=== PATIENT | male | born 1980 | race Caucasian/White ===

== ENCOUNTER 2017-12-10 21:05 | Emergency (ER) | payer OTHER, SELFPAY ==
[2017-12-10 21:06] VITALS: BP 127/89; PULSE 84; RESP 25; TEMP 36.6; O2SAT 99; BMI 22.7
--- NOTE | 2017-12-10 21:10 | EKG12_ITS ---
Test Reason : CHEST PAIN Blood Pressure : / mmHG Vent. Rate : 083 BPM Atrial Rate : 083 BPM P-R Int : 162 ms QRS Dur : 086 ms QT Int : 360 ms P-R-T Axes : 063 045 031 degrees QTc Int : 423 ms Normal sinus rhythm Low voltage QRS (LIMB LEADS) Septal MD,age undetermined, cannot be excluded Confirmed by ESTRELLITA MUÑIZ, NIKOS ([id number]), technical editor CELESTE BARBA ([id number] on 12/15/2017 2:17:35 PM Referred By: TONY Confirmed By:NIKOS HARO MD
--- NOTE | 2017-12-10 21:11 | RAD_ITS ---
STUDY: X-RAY CHEST REASON FOR EXAM: Male, 37 years old. Chest pain TECHNIQUE: Single AP portable view of the chest. COMPARISON: January 12, 2015 FINDINGS: There are monitoring devices. The lungs are clear and expanded. There is no demonstrated pleural abnormality. Normal size heart. Normal mediastinum and jocelyn. Normal visualized pulmonary arteries. Normal visualized aortic arch and descending thoracic aorta. Normal visualized thoracic spine. Normal visualized ribs, clavicles, and shoulders. There is no demonstrated abnormality of the visualized soft tissue structures of the upper abdomen. RAD/Chest 1 View (Portable) IMPRESSION: Normal x-ray examination of the chest. Electronically Signed: Wiley Grayson MD at 21:59 EDT , Service support ,
[2017-12-10 21:13] VITALS: PULSE 84; RESP 18; O2SAT 100
[2017-12-10 21:29] LABS: Absolute Lymphocyte Count 2.77 X10^3/ul (0.83-4.51); Absolute Neutrophil Count 8.9 X10^3/uL (2.0-7.7); Basophil# 0.01 X10^3/uL; Basophil% 0.1 % (0-1); Eosinophil# 0.18 X10^3/uL; Eosinophils% 1.4 % (0-5); Hematocrit 41.1 % (40-54); Hemoglobin 14.4 g/dl (13.0-16.5); Lymphocyte # 2.77 X10^3/ul (4.0); Lymphocyte % 21.9 % (19-41); Mean Corpuscular Hgb 29.5 pg (27.0-32.0); Mean Corpuscular Volume 84.2 fL (80-94); Mean Platelet Vol. 8.8 fl (6.2-12.0); Monocyte# 0.74 X10^3/uL; Monocyte% 5.8 % (0-10); Neutrophil # 8.94 X10^3/uL (2.7-7.7); Neutrophil % 70.6 % (47-70); Platelet Count 224 K/mm3 (150-450); RBC Distribution Width CV 12.6 % (11.6-14.6); RBC Distribution Width SD 38.2 fl (35.1-43.9); Red Blood Count 4.88 M/mm3 (4.6-6.2); White Blood Count 12.7 K/mm3 (4.4-11.0)
[2017-12-10 21:30] LABS: POSITIVE COUNT NO; POSITIVE DIFFERENTIAL NO; POSITIVE MORPHOLOGY NO
[2017-12-10 22:02] LABS: Anion Gap 9 (5-15); BUN 18 mg/dL (7-18); BUN/Creat Ratio 20.4 RATIO (10-20); Calcium,Total 9.4 mg/dL (8.5-10.1); Chloride 103 mmol/L (98-107); Creatinine, Serum 0.88 mg/dL (0.70-1.30); EST Glomerular Filtration Rate 102 mL/min (>60); Est Glom Filt Rate - Afr Amer 123 mL/min (>60); Glucose 115 mg/dL (74-106); Potassium 3.6 mmol/L (3.5-5.1); Sodium Level 140 mmol/L (136-145)
[2017-12-10 22:05] VITALS: BP 119/71; PULSE 74; RESP 19; O2SAT 97
--- NOTE | 2017-12-10 22:17 | ED.VISSUMM ---
- ER Visit Summary Date of Service: 12/10/17 Chief Complaint: [] Abdominal pressure radiating into the chest since mid afternoon today History of Present Illness: The patient is a 37 M [] long history of abdominal complaints including cholecystectomy, hiatal hernia surgery in [place] last year, chronic lower abdominal pain he seen GI in the past has had colonoscopy and EGD other tests such as ultrasound of the negative reports to be having had this abdominal pressure that seem to radiate into his chest he came in for evaluation symptoms are improving without any specific ED therapy. He also has a chronic cardiac evaluation including echoes and other tests and was told he had mitral valve prolapse and at no time was told he had angina CAD no history of [place] PE or DVT. In fact he is able to do normal activity exertion etc. without chest pain Pain was the typical abdominal pressure that he has suffered from his eating and drink without difficulty no fever no cough normal bowel bladder habits he seen multiple physicians for this condition Physical Examination: [] On examination he is resting comfortportably the bed his vital signs are normal head neck chest unremarkable the lungs are clear the heart tones are normal abdomen is soft there is no rebound guarding organomegaly I cannot reproduce his abdominal pressure has no sense that this is a pain he declines to call the pain just a pressure his back upper lower extremity unremarkable pulses are symmetric neurologically is awake and alert Test Results: [] Emergency Department Course and Treatment: [] Had a long conversation with the patient about all the above we did do screening labs EKG, the EKG showed a sinus rhythm nothing acute all the labs are unremarkable x-ray unremarkable, explained to him at this time given that he has had the pain since mid afternoon and his troponin of the labs are negative and he has had this pain long-standing exact etiology is unclear I recommend he stay in a bland diet, I referred him back to his primary care physicians 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 It may contain incorrect words, spelling, and punctuation that were not noted in review of the chart prior to signing ED Disposition - Plan for ED Patient: Chief Complaint: Chest Pain Referrals: Gabriel Booker DO [Primary Care Provider] -
--- NOTE | 2017-12-10 22:21 | ED.DCSUM_ITS ---
- ER Visit Summary Date of Service: 12/10/17 Chief Complaint: [] Abdominal pressure radiating into the chest since mid afternoon today History of Present Illness: The patient is a 37 M [] long history of abdominal complaints including cholecystectomy, hiatal hernia surgery in [place] last year , chronic lower abdominal pain he seen GI in the past has had colonoscopy and EGD other tests such as ultrasound of the negative reports to be having had this abdominal pressure that seem to radiate into his chest he came in for evaluation symptoms are improving without any specific ED therapy. He also has a chronic cardiac evaluation including echoes and other tests and was told he had mitral valve prolapse and at no time was told he had angina CAD no history of [place] PE or DVT. In fact he is able to do normal activity exertion etc. without chest pain Pain was the typical abdominal pressure that he has suffered from his eating and drink without difficulty no fever no cough normal bowel bladder habits he seen multiple physicians for this condition Physical Examination: [] On examination he is resting comfortportably the bed his vital signs are normal head neck chest unremarkable the lungs are clear the heart tones are normal abdomen is soft there is no rebound guarding organomegaly I cannot reproduce his abdominal pressure has no sense that this is a pain he declines to call the pain just a pressure his back upper lower extremity unremarkable pulses are symmetric neurologically is awake and alert Test Results: [] Emergency Department Course and Treatment: [] Had a long conversation with the patient about all the above we did do screening labs EKG, the EKG showed a sinus rhythm nothing acute all the labs are unremarkable x-ray unremarkable, explained to him at this time given that he has had the pain since mid afternoon and his troponin of the labs are negative and he has had this pain long-standing exact etiology is unclear I recommend he stay in a bland diet, I referred him back to his primary care physicians 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 It may contain incorrect words, spelling, and punctuation that were not noted in review of the chart prior to signing ED Disposition - Plan for ED Patient: Chief Complaint: Chest Pain Referrals: Gabriel Booker DO [Primary Care Provider] -
--- NOTE | 2017-12-10 22:21 | ED.DEP ---
ED Disposition - Plan for ED Patient: Chief Complaint: Chest Pain Instructions: ED Chest Pain Atypical Unkn Cause, ED Abdominal Pain Unkn Cause Referrals: Gabriel Booker DO [Primary Care Provider] -
[2017-12-10 22:43] LABS: AST(SGOT) 15 U/L (15-37); Alanine Aminotransfer ALT/SGPT 26 U/L (16-61); Alkaline Phosphatase 67 U/L (45-117); Globulin 4.1 g/dL (2.2-4.2); Protein, Total 8.1 g/dL (6.4-8.2)
[2017-12-10 22:58] LABS: Lipase 195 U/L (73-393)
[2017-12-10 23:00] VITALS: BP 115/79; PULSE 79; RESP 16; O2SAT 98
[2017-12-10 23:38] LABS: Bacteria 0 SEEN /hpf (None Seen); Mucous, Urine 0 SEEN /hpf (<or=2+); Red Blood Cells-Urine 0 SEEN /hpf (0-5); White Blood Cells 0 SEEN /hpf (0-5)
[2017-12-10 23:49] LABS: Color, Urine Yellow (Yellow); Glucose, Dipstick Normal (Normal); Ketone-Dipstick Negative (Negative); Leukocyte Esterase-Dipstick Negative /ul (Negative); Nitrite-Dipstick Negative (Negative); Occult Blood-Urine Negative /ul (Negative); Protein-Dipstick Negative (Negative); Urine Bilirubin Dipstick Negative (Negative); Urine Clarity Clear (Clear); Urine Urobilinogen Normal (Normal)
[2017-12-11 00:09] LABS: Squamous Epithelial Cells - UA 0-5 SEEN /hpf (0-5)
[2017-12-11 00:14] VITALS: BP 111/78; PULSE 78; RESP 17; O2SAT 97
== END 2017-12-11 00:15 | disposition home or self-care (01) ==
PROVIDERS: Emergency Provider Emergency Medicine; Family Provider Family Medicine; PCP Family Medicine
DX: R10.9 Unspecified abdominal pain (principal); Z79.899 Other long term (current) drug therapy
CPT/HCPCS: 71045; 80048; 80076; 81001; 83690; 84484; 85025; 93005; 99285